=== PATIENT | female | born 1970 | race Caucasian/White ===

== ENCOUNTER 2020-06-06 14:58 | Outpatient (CLI) | payer OTHER, SELFPAY ==
--- NOTE | ~2020-06-06 | XR_ITS ---
XR cervical spine 4-5V 06/06/2020 15:22 Indication: Neck pain Procedure: 4 view cervical spine Comparison: No prior studies for comparison. Findings: Reversal of cervical lordosis. There is mild disc narrowing at C5-6 and C6-7. There are raymundo tral osteophytes at these levels. No acute fractures identified. No prevertebral soft tissue swelling . Odontoid process within normal limits. Mild uncinate hypertrophy at multiple levels. Impression: 1: Mild-moderate cervical spondylosis. Reviewed, dictated and finalized at location B. MS VICE PRESIDENT Impression: 1: Mild-moderate cervical spondylosis.
== END 2020-06-06 14:59 | disposition home or self-care (01) ==
LOC: ANHIMG 15:06
PROVIDERS: PCP Family Medicine; Visit Provider Family Medicine
DX: M47.22 Other spondylosis with radiculopathy, cervical region (principal); M75.81 Other shoulder lesions, right shoulder
CPT/HCPCS: 72050

== ENCOUNTER 2021-03-10 17:04 | Outpatient (CLI) | payer OTHER, SELFPAY ==
--- NOTE | ~2021-03-10 | MM_ITS ---
EXAMINATION: MM screening kenny BI w amilcar HISTORY: Screening mammogram TECHNIQUE: Craniocaudal and mediolateral oblique 3-D tomosynthesis images were obtained and synthetic 2-D images were generated. CAD analysis was submitted and interpreted. COMPARISON: 01/13/2018 limited right breast ultrasound 11/18/2016, 09/19/2015 and 08/09/2014 bilateral digital screening mammogram examinations BREAST PARENCHYMAL COMPOSITION: The breasts are almost entirely fatty. FINDINGS: There is no evidence of suspicious mass, calcification, or architectural distortion to sugg est malignancy in either breast. There has been no suspicious interval change. IMPRESSION: 1. No mammographic evidence of malignancy. 2. Recommend routine screening mammography in one year. BI-RADS Category 1: Negative Reviewed, dictated and finalized at location A.
== END 2021-03-10 17:05 | disposition home or self-care (01) ==
LOC: ANHIMG 17:06
PROVIDERS: PCP Family Medicine; Visit Provider Physician Assistant
DX: Z12.31 Encounter for screening mammogram for malignant neoplasm of breast (principal)
CPT/HCPCS: 77063; 77067

== ENCOUNTER 2021-04-30 19:10 | Emergency (ER) | payer OTHER, SELFPAY ==
[2021-04-30 19:58] VITALS: BP 209/107; PULSE 81; RESP 18; TEMP 36.8; O2SAT 99
--- NOTE | 2021-04-30 20:07 | ECG_ITS ---
Measurements Intervals Post Rate: 76 P: 41 MD: 167 QRS: 10 QRSD: 89 T: 37 QT: 368 QTc: 416 Interpretive Statements SINUS RHYTHM LOW QRS VOLTAGE IN PRECORDIAL LEADS INCOMPLETE RIGHT BUNDLE BRANCH BLOCK DELAYED PRECORDIAL R/S TRANSITION BORDERLINE T WAVE ABNORMALITY- ANTERIOR LEADS BASELINE ARTIFACT- I, II, III, AVR, AVL, AVF BORDERLINE ECG Electronically Signed On 05-01-2021 6:37:53 CDT by Jose Carreon D.O.
[2021-04-30 20:52] LABS: Basophils Absolute Auto 0.1 K/mm3 (0.0-0.1); Basophils Percent Auto 0.9 % (0.2-1.2); Eosinophils Absolute Auto 0.4 K/mm3 (0-0.3); Eosinophils Percent Auto 3.3 % (0-4.4); Hematocrit 42.2 % (37.0-47.0); Hemoglobin 13.3 g/dL (12.0-15.0); Immature Granulocyte Absolute 0.04 K/mm3 (0.00-0.031); Immature Granulocyte Percent A 0.3 % (0-0.5); Lymphocytes Absolute Auto 4.02 K/mm3 (0.9-3.2); Lymphocytes Percent Auto 34.4 % (18.3-44.2); Mean Corpuscular HGB Conc 31.5 g/dl (32-36); Mean Corpuscular Hemoglobin 26.3 pg (26-34); Mean Corpuscular Volume 83.6 fl (80-100); Monocytes Absolute Auto 0.8 K/mm3 (0.1-0.6); Neutrophils Absolute Auto 6.3 K/mm3 (1.3-6.7); Neutrophils Percent Auto 54.1 % (45.5-73.1); Platelet Count Result 352 k/mm3 (150-375); Red Blood Count 5.05 M/mm3 (4.2-5.4); Red Cell Distribution Width 13.3 % (11.5-14.5); White Blood Count 11.7 K/mm3 (4.5-10.0)
[2021-04-30 21:00] LABS: Alanine Aminotransferase 28 U/L (4-35); Albumin Level 4.4 g/dL (3.5-5.1); Alkaline Phosphatase 76 U/L (38-126); Anion Gap 8 mmol/L (8-16); Aspartate Amino Transferase 21 U/L (14-36); Bilirubin,Total 0.2 mg/dL (0.2-1.3); Blood Urea Nitrogen 12 mg/dL (7-17); Calcium 9.6 mg/dL (8.4-10.2); Carbon Dioxide 29 mmol/L (22-30); Chloride 105 mmol/L (98-107); Estimated CRCL calculation 101 ml/min; Estimated Glomerular Filt Rate > 60; Glucose 100 mg/dL (65-110); Potassium 3.7 mmol/L (3.4-5.0); Sodium 142 mmol/L (137-145)
[2021-04-30 21:12] LABS: Troponin I < 0.012 ng/mL (0.000-0.034)
[2021-04-30 21:47] VITALS: BP 152/86; PULSE 82; RESP 16; O2SAT 100
[2021-04-30 22:05] VITALS: BP 160/94; PULSE 80; RESP 15; O2SAT 99
--- NOTE | 2021-04-30 22:12 | ED.GENADULT ---
HPI - General Adult General Chief complaint: Headache Stated complaint: high blood pressure/ lip numbness Time Seen by Provider: 04/30/21 21:35 Source: patient and RN notes reviewed Mode of arrival: ambulatory Limitations: no limitations History of Present Illness HPI narrative: This is a 51 year old female with history of migraines who presents for evaluation of high blood pressure. Patient states this morning she developed her typical migraine. She took 2 Excedrin and her migraine resolved. She went to work and she states she felt fine. She had a nurse at work to check her blood pressure since she was there but she had no symptoms. Her blood pressure was elevated to 170/90 so she was advised to speak to her primary care provider. She called her primary care provider who told her to come to ER. She reports her migraine has resolved. She may some paresthesia to her lip but denies focal weakness. She denies chest pain, shortness of breath or dizziness. She denies history of hypertension and she does not take any medication. She has been under alot of stress this month. Related Data Allergies Allergy/AdvReac Type Severity Reaction Status Date / Time promethazine Allergy Severe hallucinati Verified 04/30/21 21:33 ons Penicillins Allergy Unknown Unknown Verified 04/30/21 21:33 Review of Systems Review of Systems: All systems reviewed & are unremarkable except as noted in HPI and below PMFSH Past Medical History Medical History History of mammogram (~11/18/16) History of Papanicolaou smear of cervix (~08/28/12) Morbid obesity with BMI of 40.0-44.9, adult Surgical History Surgical History History of appendectomy (~11/20/18) History of laparoscopy History of tonsillectomy Social History Social History Smoking status: Never smoker Alcohol intake: current Exam Narrative: GENERAL: Well-appearing, well-nourished, and in no acute distress. HEAD: Normocephalic, atraumatic EYES: PERRLA and EOMI, conjunctiva clear without discharge EARS: TM's clear bilaterally without erythema or dullness NOSE: Nares clear, no rhinorrhea or epistaxis THROAT:Mucous membranes moist, Oropharynx normal without erythema, exudate, peritonsillar swelling or fluctuance NECK: Supple, without lymphadenopathy or mass RESPIRATORY: No respiratory distress, Airway patent, Respirations non-labored, Clear to auscultation without rales, rhonchi or wheeze HEART: Regular rate and rhythm. No murmur heard. Normal peripheral pulses. ABDOMEN: Soft, nontender, nondistended, normal active bowel sounds. No masses. No rebound or guarding, No organomegaly. EXTREMITIES: No edema, normal strength with full range of motion. SKIN: Warm, dry, normal color without rash NEURO: Alert and oriented x3. CN 2-12 grossly intact. No focal deficits. PSYCH: Normal mood and affect. Neuro: General: patient oriented x3, moves all extremities, no meningeal signs, no focal motor deficits and CN's II-XI intact bilaterally Cranial nerves: Yes Nystagmus not present Speech: normal speech Motor exam (neuro): 5/5 motor strength present throughout Sensory Exam: normal sensation Coordination: [id number] test normal and [id number] test normal Course Reevaluation(s) Reevaluation #1: I Discussed with patient plan to discharge on lisinopril with follow up with PCP. She will get new BP monitor and start checking blood pressure at home. She was given return precautions. Date: 04/30/21 Time: 22:41 Consultations Consultation #1: I spoke with Dr. Ceja who recommends patient get blood pressure cuff and to start on lisinopril. BP in 160s in ER Date: 04/30/21 Time: 22:13 Vital Signs Vital signs: Vital Signs Temperature 98.2 F 04/30/21 19:58 Pulse Rate 81 04/30/21 19:58 Respiratory Rate 18
[2021-04-30] MEDS: lisinopriL 10 MG TABLET PO (22:27)
[2021-04-30 22:55] VITALS: BP 170/86; PULSE 79; RESP 16; O2SAT 99
== END 2021-04-30 22:55 | disposition home or self-care (01) ==
PROVIDERS: Emergency Medicine; Emergency Provider General Practice; PCP Family Medicine
DX: R03.0 Elevated blood-pressure reading, without diagnosis of hypertension (principal); E66.01 Morbid (severe) obesity due to excess calories; Z68.41 Body mass index [BMI] 40.0-44.9, adult; I45.10 Unspecified right bundle-branch block; R94.31 Abnormal electrocardiogram [ECG] [EKG]
CPT/HCPCS: 36415; 80053; 84484; 85025; 93005; 99284; A9270

== ENCOUNTER → 2021-05-20 15:30 | Outpatient (CLI) | payer OTHER, SELFPAY ==
--- NOTE | ~2021-05-20 | MR_ITS ---
EXAMINATION: MR brain/brain stem wo con DATE: 05/20/2021 16:22 INDICATION: Bilateral facial numbness. TECHNIQUE: Magnetic resonance imaging (MRI) of the brain and brainstem was performed without intraven ous contrast. Sequences included sagittal and axial T1-weighted FSE, axial diffusion-weighted FS EPI, axial T2*-weighted GRE, axial T2-weighted FLAIR Propeller, and axial T2-weighted Propeller. Apparent diffusion coefficient (ADC) maps were created. COMPARISON: None. FINDINGS: There is an empty sella. There is no intracranial hemorrhage, acute infarction, or abnormal intracranial mass lesion. The ventricles are normal in size. The paranasal sinuses are clear. The ma stoid air cells are normal. The orbits are normal. IMPRESSION: 1. No etiology for the patient's symptoms. Reviewed, dictated and finalized at location A. E PROJECTIONIST
== END ==
PROVIDERS: Visit Provider Family Medicine
DX: R20.0 Anesthesia of skin (principal)
CPT/HCPCS: 70551

== ENCOUNTER 2021-06-16 13:50 | Outpatient (CLI) | payer OTHER, SELFPAY ==
--- NOTE | ~2021-06-16 | US_ITS ---
EXAMINATION: US pelvic complete w TV DATE: 06/16/2021 14:51 INDICATION: Postmenopausal bleeding Comparison:CT dated 11/20/2018 TECHNIQUE: Multiple transabdominal and endovaginal sonographic images of the pelvis performed. FINDINGS: The uterus measures 10.6 x 8.2 x 6.5 cm. The endometrium is thickened and heterogeneous. Th ere are hypoechoic masses in the lower uterus at the cervix measuring 1.6 and 0.7 cm greatest dimensi on respectively. The endometrial complex measures 1.6 cm. The ovaries are not visualized. There is no free fluid in the pelvis. There are no abnormal masses seen on either side. IMPRESSION: 1. Thickened heterogeneous endometrium with complex masses in the lower uterine segment at the cervix measuring up to 1.6 cm. The differential diagnosis includes endometrial hyperplasia, polyp and carcinoma. Biopsy is recommended. Reviewed, dictated and finalized at location A. STAVE ASSEMBLER IMPRESSION: 1. Thickened heterogeneous endometrium with complex masses in the lower uterine segment at the cervix measuring up to 1.6 cm. The differential diagnosis inclu don endometrial hyperplasia, polyp and carcinoma. Biopsy is recommended.
== END 2021-06-16 13:51 | disposition home or self-care (01) ==
LOC: ANHIMG 13:54
PROVIDERS: PCP Family Medicine; Visit Provider Student in an Organized Health Care Education/Training Program
DX: N95.0 Postmenopausal bleeding (principal); R93.89 Abnormal findings on diagnostic imaging of other specified body structures; N88.9 Noninflammatory disorder of cervix uteri, unspecified
CPT/HCPCS: 76830; 76856

== ENCOUNTER 2021-08-10 00:38 | Day surgery (SDC) | payer OTHER, SELFPAY ==
[2021-07-30 12:56] VITALS: BMI 36.8
--- NOTE | 2021-08-10 07:35 | WPDANESEPPF ---
Anes - Initial Pre Proc Eval Procedure: Operation Date: 08/10/21 09:00 Proposed Procedures p Screening Colonoscopy - Heriberto Oro MD Date/Time: 08/10/21 07:35 Surgeon: Heriberto Oro MD Pre Op Diagnosis: neoplasm screening Patient Data Age: 51 Gender: F Height: 1.75 m Weight: 113 kg Allergies Allergy/AdvReac Type Severity Reaction Status Date / Time promethazine Allergy Severe hallucinati Verified 08/10/21 08:08 ons Penicillins Allergy Unknown Rash Verified 08/10/21 08:08 Home Medications Medication Instructions Recorded Confirmed Type cholecalciferol (vitamin D3) 1,250 1,250 mcg PO WEEKLY #14 cap 01/08/21 08/10/21 Rx mcg (50,000 unit) capsule lisinopril 10 mg tablet 10 mg PO DAILY #90 tablet 05/05/21 08/10/21 Rx hydrochlorothiazide 25 mg tablet 25 mg PO QAM #90 tablet 06/02/21 08/10/21 Rx sertraline 50 mg tablet 50 mg PO DAILY #90 tablet 06/02/21 08/10/21 Rx Patient hx anesthesia problems: none Family hx anesthesia problems: none Results Review: All pre-operative results and documents have been reviewed as part of the pre-operative evaluation. [facility] Past Medical History Medical History (Updated 06/10/21 @ 15:08 by Linda Coronel MD) Allergies Anemia Anxiety Asthma Deltoid tendinitis Fatigue Headache History of human papillomavirus infection History of mammogram (~11/18/16) History of Papanicolaou smear of cervix (~08/28/12) Hypertension Morbid obesity with BMI of 40.0-44.9, adult Right rotator cuff tendinitis Screening for breast cancer Surgical History Surgical History (Updated 06/10/21 @ 11:57 by Kristina Buchanan CMA) H/O tubal ligation History of 3 sections History of appendectomy (~11/20/18) History of laparoscopy History of tonsillectomy S/P appendectomy Social History Social History (Updated 06/10/21 @ 11:59 by Kristina Buchanan [facility]) Smoking status: Never smoker Alcohol intake: current Drinks per week: 2 Substance use: never Substance use type: does not use Living arrangements: with family Spiritual care concerns: No Anes - Eval Final PreProcedure Day of Procedure 08/10/21 07:35 Patient weight: obese Heart: regular rate and rhythm Lungs: clear to auscultation and normal air movement Airway: Mallampati scale class II Neurological: alert and oriented Last oral intake: >/= 8 hours ASA classification: III Emergent: no Anesthetic plan: proceed Anesthesia type and monitoring: general GIVS and standard monitoring Results Review: All pre-operative results and documents have been reviewed as part of the pre-operative evaluation. Informed Consent: The patient's anesthetic plan and its attendant risks and benefits were discussed with the patient/family/POA. Questions were solicited and answers provided to the satisfaction of the patient/family/POA.
[2021-08-10 08:09] VITALS: BP 141/95; PULSE 93; RESP 20; TEMP 36.6; O2SAT 20
[2021-08-10] MEDS: LACTATED RINGERS 1,000 ML 150 ML IV CONT (08:11)
--- NOTE | 2021-08-10 08:43 | PM.HPGS ---
History of Present Illness History of Present Illness Consent: Risks, benefits, and alternatives have been discussed and questions answered. Patient agrees to proceed with procedure. Chief complaint: neoplasm screening Narrative: Kandy Michelle is a 51 year old female here for first screening colonoscopy Review of Systems Constitutional: Constitutional: Denies headache(s) and Denies weakness Eyes: Eyes: Denies blurry vision ENT: Reports Normal hearing present, Denies headache(s) and Denies neck pain Cardiovascular: Cardiovascular: Denies chest pain and Denies dyspnea Respiratory: Respiratory: Denies dyspnea Gastrointestinal: Gastrointestinal: Reports no additional gastrointestinal complaints Genitourinary: Genitourinary: Denies dysuria Musculoskeletal: Musculoskeletal: Denies neck pain Integumentary/Breasts: Skin/Breast: Denies dry skin Neurologic: Reports Normal hearing present, Denies headache(s) and Denies weakness Psychiatric: Psychiatric: Denies anxiety Endocrine: Endocrine: Denies change in body appearance Hematologic/Lymphatic: Hematologic/Lymphatic: Denies easy bleeding Allergic/Immunologic: Allergic/Immunologic: Denies urticaria PMFSH Past Medical History Medical History (Updated 08/10/21 @ 08:44 by Heriberto Oro MD) Allergies Anemia Anxiety Asthma Colon cancer screening Deltoid tendinitis Fatigue Headache History of human papillomavirus infection History of mammogram (~11/18/16) History of Papanicolaou smear of cervix (~08/28/12) Hypertension Morbid obesity with BMI of 40.0-44.9, adult Right rotator cuff tendinitis Screening for breast cancer Surgical History Surgical History (Updated 06/10/21 @ 11:57 by Kristina Buchanan CMA) H/O tubal ligation History of 3 sections History of appendectomy (~11/20/18) History of laparoscopy History of tonsillectomy S/P appendectomy Social History Social History (Updated 06/10/21 @ 11:59 by Kristina Buchanan CMA) Smoking status: Never smoker Alcohol intake: current Drinks per week: 2 Substance use: never Substance use type: does not use Living arrangements: with family Spiritual care concerns: No Meds Home Medications and Allergies Home Medications Medication Instructions Recorded Confirmed Type cholecalciferol (vitamin D3) 1,250 1,250 mcg PO WEEKLY #14 cap 01/08/21 08/10/21 Rx mcg (50,000 unit) capsule lisinopril 10 mg tablet 10 mg PO DAILY #90 tablet 05/05/21 08/10/21 Rx hydrochlorothiazide 25 mg tablet 25 mg PO QAM #90 tablet 06/02/21 08/10/21 Rx sertraline 50 mg tablet 50 mg PO DAILY #90 tablet 06/02/21 08/10/21 Rx Allergies Allergy/AdvReac Type Severity Reaction Status Date / Time promethazine Allergy Severe hallucinati Verified 08/10/21 08:08 ons Penicillins Allergy Unknown Rash Verified 08/10/21 08:08 Vital Signs Vital Signs - 24 hr 08/10/21 08:09 Temperature 98 F Pulse Rate 93 Respiratory Rate 20 Blood Pressure 141/95 H Pulse Oximetry 20 L Exam Const: General: comfortable and no acute distress HENMT: General nose exam: Normal nares present Eyes: General: appearance normal, both eyes and all related structures Neck: Neck: no JVD Resp: Auscultation: clear to auscultation bilaterally Cardio: Rate: regular rate Rhythm: regular rhythm GI: Inspection: non-distended GI Palp: Yes Soft to palpation Skin: General skin exam: normal color Neuro: General: gait normal Speech: normal speech Extrem: General: normal to inspection Psych: Mental Status: mental status grossly normal Assessment and Plan Assessment and plan (1) Colon cancer screening: Code(s): Z12.11 - Encounter for screening for malignant neoplasm of colon Status: Acute Assessment and Plan: colonoscopy
--- NOTE | 2021-08-10 09:04 | SUR.OPER ---
Resolution Clip Lot: [id number] Exp: 2024-04-15
[2021-08-10 09:09] VITALS: BP 116/75; PULSE 79; RESP 18; O2SAT 96
[2021-08-10 09:19] VITALS: BP 124/81; PULSE 66; RESP 16; O2SAT 97
[2021-08-10 09:29] VITALS: BP 124/65; PULSE 64; RESP 14; O2SAT 99
== END 2021-08-10 09:39 | disposition home or self-care (01) ==
PROVIDERS: PCP Family Medicine; Visit Provider Internal Medicine Gastroenterology
PROC: 0DJD8ZZ Inspection of Lower Intestinal Tract, Via Natural or Artificial Opening Endoscopic (ICD-10-PCS; CPT 45378; principal; 2021-08-10 09:00)
DX: Z12.11 Encounter for screening for malignant neoplasm of colon (principal); D12.2 Benign neoplasm of ascending colon; D12.4 Benign neoplasm of descending colon; K57.30 Diverticulosis of large intestine without perforation or abscess without bleeding; K64.8 Other hemorrhoids; I10 Essential (primary) hypertension; F41.8 Other specified anxiety disorders; E66.9 Obesity, unspecified; Z68.37 Body mass index [BMI] 37.0-37.9, adult
CPT/HCPCS: 45385; 88305; J2704; J7120

== ENCOUNTER 2021-09-08 08:28 | Outpatient (CLI) | payer OTHER, SELFPAY ==
[2021-09-08 09:00] LABS: Anion Gap 7 mmol/L (8-16); Blood Urea Nitrogen 14 mg/dL (7-17); Calcium 9.4 mg/dL (8.4-10.2); Carbon Dioxide 29 mmol/L (22-30); Chloride 103 mmol/L (98-107); Estimated Glomerular Filt Rate > 60; Glucose 108 mg/dL (65-110); Potassium 4.4 mmol/L (3.4-5.0); Sodium 139 mmol/L (137-145)
== END 2021-09-08 08:29 | disposition home or self-care (01) ==
LOC: ANHSURGERY 08:31
PROVIDERS: Anesthesiology; PCP Family Medicine; Visit Provider Student in an Organized Health Care Education/Training Program
DX: Z01.818 Encounter for other preprocedural examination (principal); I10 Essential (primary) hypertension
CPT/HCPCS: 36415; 80048

== ENCOUNTER 2021-09-11 01:48 | Day surgery (SDC) | payer OTHER, SELFPAY ==
--- NOTE | 2021-09-07 09:04 | SUR.PREOP ---
Report to the Outpatient Waiting Room, entrance under the green pavilion located off [facility], at time 0900 on date 09/11/21. OR Time: 1100. - You and your visitor will be asked a series of questions to screen for COVID 19 for your protection. - A mask is required within the hospital. Preoperative COVID Testing Requirements: No COVID Test needed if: (proof is required; if not received patient will have Rapid Test prior to entry) - Patient has received COVID Vaccine at least 14 days prior to procedure date or - Patient has positive COVID test result within last 90 days of surgery date. COVID Test needed if above criteria is not met If not COVID vaccinated a COVID test must be conducted within 72 hours of surgery and patient is asked to isolate self from time of testing until procedure. You will go to the [facility] for your COVID testing. The [facility] is located at the corner of [address] [facility]. You will only be called if COVID results are positive and your surgeon may reschedule your elective surgery date. Patients may have clear liquids (water, carbonated beverages, clear teas, apple juice) until 3 hours prior to surgery with a maximum of 20 ounces. NOTHING TO DRINK AFTER 0800. - No food from midnight until time of surgery - Infants may have breast milk until 4 hours before surgery, formula 6 hours prior to surgery. - Children will be allowed to drink immediately following surgery. If applicable, please bring a bottle or sippy cup to assist with drinking. Juice, water, soda, and popsicles are readily available. For infants on formula, please bring formula the day of surgery. Pacifiers are allowed. Take the following medications with a SIP of water the morning of surgery: SERTRALINE Please no make-up, nail macedonian, hairspray, perfume, deodorant, or body powder the day of surgery. No jewelry (including any body piercings) or valuables the day of surgery, leave them at home. Please take a shower or bath the night before, or the morning of, surgery with an antibacterial soap. Wear comfortable, loose fitting clothing. Children are encouraged to wear pajamas. - Jewelry must be removed prior to entering the operating room. Rings and piercings that are not removed may be cut off. - The hospital will not accept responsibility for valuables. - Please leave all valuables, including medications, at home the day of surgery. If you are going home after surgery, a licensed charter and tour bus driver must drive you home. - NO public transportation without another adult. - We recommend that an adult stay with you for 24 hours following discharge. - We also recommend that you do not drive, make important decision, drink alcoholic beverages, or take any drugs that were not prescribed by your health care provider for at least 24 hours after your discharge time. For Pediatric surgeries, we recommend two adults accompany the child home (only one inside the building at this time). One visitor will be allowed to accompany the patient into the hospital. Patients visitor will be instructed to remain with patient at all times or leave the building. We will allow the visitor to come back to the postoperative area when patient is ready. Follow any additional instructions given to you from your surgeon. Telephone instructions given to RADHA JEFF and asked if any additional questions and then verbalized understanding. Patient advised to call surgeon office or pre surgery nurse liaison [phone] if any additional questions.
[2021-09-07 09:12] VITALS: BMI 36.9
--- NOTE | 2021-09-10 17:36 | PM.IMHP ---
H&P: HPI History of Present Illness Date/Time: 09/10/21 17:36 Patient is a 51yo woman who presented to gynecology office in 06/2021 with complaints of postmenopausal bleeding. Patient stated that last normal menstrual period was in either 2018 or 2019. Since then, patient reported a few episodes of spotting, however, states that the spotting did not last more than one day with each of these occurrences. Beginning in approx. 2020, patient reports onset of almost daily bleeding that has tapered off to rare, but still present. She also reports occasional cramping. In office EMB was attempted twice, however, unsuccessful due to cervical stenosis. With second attempt, scant tissue was collected, however, this was inconsistent given the thickness of endometrial lining on US. Therefore, recommendation made to proceed with hysteroscopy/D&C for further evaluation. In general, patient reports feeling well today without complaints. Chief Complaint: Postmenopausal bleeding Review of Systems Review of Systems: All systems reviewed & are unremarkable except as noted in HPI and below Constitutional: Constitutional: Reports as per HPI, Reports no additional constitutional complaints, Denies chills, Denies fever(s), Denies headache(s) and Denies night sweats Eyes: Eyes: Reports as per HPI and Reports no additional eye complaints ENT: Reports system reviewed and no additional complaints, except as documented, Reports as per HPI, Reports Normal hearing present and Denies headache(s) Cardiovascular: Cardiovascular: Reports as per HPI, Reports no additional cardiovascular complaints, Denies chest pain and Denies dyspnea Respiratory: Respiratory: Reports as per HPI, Reports no additional respiratory complaints, Denies cough and Denies dyspnea Gastrointestinal: Gastrointestinal: Reports as per HPI, Reports no additional gastrointestinal complaints, Denies abdominal pain, Denies change in bowel habits, Denies change in stool character, Denies nausea and Denies vomiting Genitourinary: Genitourinary: Reports no additional female genitourinary complaints, Reports as per HPI, Denies abnormal vaginal bleeding, Denies genital lesions, Denies hot flashes, Denies dyspareunia, Denies pelvic pain, Denies sexual dysfunction, Denies urinary incontinence, Denies vaginal discharge, Denies vaginal dryness and Denies vaginal odor Musculoskeletal: Musculoskeletal: Reports no additional musculoskeletal complaints and Reports as per HPI Integumentary/Breasts: Skin/Breast: Reports system reviewed and no additional complaints, except as docu, Reports as per HPI, Denies breast pain and Denies nipple discharge Neurologic: Reports system reviewed and no additional complaints, except as documented, Reports as per HPI, Reports Normal hearing present and Denies headache(s) Psychiatric: Psychiatric: Reports no additional psychiatric complaints, Reports as per HPI, Denies anxiety and Denies depression Endocrine: Endocrine: Reports no additional endocrine complaints and Reports as per HPI Hematologic/Lymphatic: Hematologic/Lymphatic: Reports no additional hematologic/lymphatic complaints and Reports as per HPI Allergic/Immunologic: Allergic/Immunologic: Reports no additional allergic/immunologic complaints and Reports as per HPI PMFSH Past Medical History Medical History Allergies Anemia Anxiety Asthma Colon cancer screening Deltoid tendinitis Fatigue Headache History of human papillomavirus infection History of mammogram (~11/18/16) History of Papanicolaou smear of cervix (~08/28/12) Hypertension Morbid obesity with BMI of 40.0-44.9, adult Right rotator cuff tendinitis Screening for breast cancer Surgical History Surgical History H/O tubal ligation History of 3 sections History of appendectomy (~11/20/18) History of colonoscopy with polypectomy History of laparoscopy Hi
--- NOTE | 2021-09-11 09:24 | P.PNAN_ITS ---
Anes - Initial Pre Proc Eval Procedure: Operation Date: 09/11/21 11:00 Proposed Procedures p Hysteroscopy Dilation and Curettage with Myosure - Linda Coronel MD Date/Time: 09/11/21 09:24 Surgeon: Linda Coronel MD Pre Op Diagnosis: Post Menopausal Bleeding Patient Data Age: 51 Gender: F Height: 1.75 m Weight: 113.4 kg Allergies Allergy/AdvReac Type Severity Reaction Status Date / Time promethazine Allergy Severe hallucinati Verified 09/07/21 09:17 ons Penicillins Allergy Unknown Rash Verified 09/07/21 09:17 Home Medications Medication Instructions Recorded Confirmed Type cholecalciferol (vitamin D3) 1,250 1,250 mcg PO WEEKLY #14 cap 01/08/21 09/07/21 Rx mcg (50,000 unit) capsule lisinopril 10 mg tablet 10 mg PO DAILY #90 tablet 05/05/21 09/07/21 Rx hydrochlorothiazide 25 mg tablet 25 mg PO QAM #90 tablet 06/02/21 09/07/21 Rx sertraline 50 mg tablet 50 mg PO DAILY #90 tablet 06/02/21 09/07/21 Rx misoprostol 200 mcg tablet 200 mcg PO Q12H #2 tablet 09/04/21 09/07/21 Rx Patient hx anesthesia problems: none Family hx anesthesia problems: none Results Review: All pre-operative results and documents have been reviewed as part of the pre-operative evaluation. [facility] Past Medical History Medical History Allergies Anemia Anxiety Asthma Colon cancer screening Deltoid tendinitis Fatigue Headache History of human papillomavirus infection History of mammogram (~11/18/16) History of Papanicolaou smear of cervix (~08/28/12) Hypertension Morbid obesity with BMI of 40.0-44.9, adult Right rotator cuff tendinitis Screening for breast cancer Surgical History Surgical History H/O tubal ligation History of 3 sections History of appendectomy (~11/20/18) History of colonoscopy with polypectomy History of laparoscopy History of tonsillectomy S/P appendectomy Social History Social History Smoking status: Never smoker Substance use: never Substance use type: does not use Living arrangements: with family Spiritual care concerns: No Anes - Eval Final PreProcedure Day of Procedure 09/11/21 09:24 Patient weight: obese Heart: regular rate and rhythm Lungs: clear to auscultation Airway: Mallampati scale class II Neurological: alert and oriented Last oral intake: >/= 8 hours ASA classification: III Emergent: no Anesthetic plan: proceed Anesthesia type and monitoring: general GIVS and standard monitoring Results Review: All pre-operative results and documents have been reviewed as part of the pre-operative evaluation. Informed Consent: The patient's anesthetic plan and its attendant risks and benefits were discussed with the patient/family/POA. Questions were solicited and answers provided to the satisfaction of the patient/family/POA.
[2021-09-11] MEDS: LACTATED RINGERS 1,000 ML 30 ML IV CONT (09:30)
[2021-09-11] MEDS: ACETAMINOPHEN 500 MG TABLET 1000 MG PO (09:36)
--- NOTE | 2021-09-11 09:41 | WPDHPUPDATE1 ---
History and Physical Update Update Date/Time: 09/11/21 09:41 History and Physical has been reviewed, including an updated exam of the patient. There are NO changes in the patient's condition. Risks, benefits, and alternatives have been discussed and questions answered. Patient agrees to proceed with procedure.
[2021-09-11 09:45] VITALS: BP 137/84; PULSE 71; RESP 18; TEMP 36.7; O2SAT 98
[2021-09-11 10:22] VITALS: BP 149/91; PULSE 63; RESP 14; O2SAT 92
[2021-09-11 10:52] VITALS: BP 148/97; PULSE 71; RESP 14; O2SAT 94
[2021-09-11] MEDS: oxyCODONE HCL (*CRX) 5 MG TAB IR PO (11:06)
--- NOTE | 2021-09-11 11:19 | P.OP_ITS ---
Procedure Note - Detailed Date of Procedure 09/11/21 Pre-op Diagnosis Post Menopausal Bleeding Post-op Diagnosis Same Procedure Performed Hysteroscopy Dilation and curettage Surgeon Linda Coronel MD Anesthesia MAC Findings Endometrial cavity severely obscured by adhesions and scar tissue, limited visualization Description of Procedure The patient was taken to the operating room where she self-transferred to the operating room table. Patient was placed in the dorsal supine position. Anesthesia was administered and found to be adequate. The patient was repositioned in the dorsal lithotomy position with the use of Yariel stirrups. She was prepped and draped in the usual sterile fashion. A red rubber catheter was used to drain the bladder of 5 cc of yellow urine. A bivalve speculum was inserted into the vagina. The cervix was visualized and the anterior lip of the cervix was grasped with a single-tooth tenaculum. A paracervical block with 1% plain lidocaine was performed. 5 cc of lidocaine was administered on either side. The cervix was serially dilated to accommodate a hysteroscope. The hysteroscope was then advanced into the endometrial cavity, however, what appeared to be significant scar tissue and adhesions was noted. This limited a dequate visualization of the endometrial cavity. Tubal ostia were not visualized. Photographs were taken. As hysteroscope was slowly retracted, there appeared to be tract on the left side of the endometrial cavity near lower uterine segment. Attempt made to advance hysteroscope through this tract, however, unable to do so. Hysteroscope was removed. A medium sized rigid curette was then introduced into the endometrial cavity. Given the inability to visualize the endometrial cavity clearly, extremely gentle curettage was performed with a scant amount of tissue obtained. The specimen was prepared to be sent to pathology for analysis. Procedure was deemed complete. The tenaculum was removed. Minimal oozing was noted from one of the tenaculum puncture sites. This site was made hemostatic with silver nitrate. The vagina was cleansed and dried. The speculum was removed. The remainder of the patient was also cleansed and dried. She was taken out of the dorsal lithotomy position and awakened from anesthesia without difficulty. She was transferred to the recovery room in stable condition. All sponge, lap, instrument counts were correct at end of the procedure. Estimated Blood Loss 5 IV Fluids 600 (hysteroscopic fluid: 2850cc in/1650cc out) Urine Output 5 Drains No Packing No Pathology Yes (endometrial curettings) Complications No immediate complications Condition Stable Disposition Same day
[2021-09-11 11:22] VITALS: BP 141/70; PULSE 61; RESP 14; O2SAT 97
[2021-09-11 11:45] VITALS: BP 132/83; PULSE 63; RESP 14; O2SAT 94
== END 2021-09-11 11:55 | disposition home or self-care (01) ==
PROVIDERS: PCP Family Medicine; Visit Provider Student in an Organized Health Care Education/Training Program
PROC: 0U5B8ZZ Destruction of Endometrium, Via Natural or Artificial Opening Endoscopic (ICD-10-PCS; CPT 58563; principal; 2021-09-11 11:00)
DX: N95.0 Postmenopausal bleeding (principal); N73.6 Female pelvic peritoneal adhesions (postinfective); I10 Essential (primary) hypertension; F41.9 Anxiety disorder, unspecified; E66.9 Obesity, unspecified; Z68.37 Body mass index [BMI] 37.0-37.9, adult
CPT/HCPCS: 58558; 36415; 80048; 88305; A9270; J2250; J2704; J3010; J7030; J7120

== ENCOUNTER 2021-12-29 12:23 | Outpatient (CLI) | payer OTHER, SELFPAY ==
--- NOTE | 2021-12-29 12:36 | ECG_ITS ---
Measurements Intervals [place] Rate: 61 P: 40 NE: 157 QRS: -3 QRSD: 94 T: 39 QT: 438 QTc: 443 Interpretive Statements SINUS RHYTHM WITH OCCASIONAL VENTRICULAR PREMATURE COMPLEXES RIGHT VENTRICULAR CONDUCTION DELAY Electronically Signed On 12-29-2021 12:58:50 CDT by Markell Morel M.D.
[2021-12-29 13:09] LABS: Anion Gap 7 mmol/L (8-16); Blood Urea Nitrogen 15 mg/dL (7-17); Calcium 9.2 mg/dL (8.4-10.2); Carbon Dioxide 27 mmol/L (22-30); Chloride 105 mmol/L (98-107); Estimated Glomerular Filt Rate > 60; Glucose 98 mg/dL (65-110); Potassium 3.8 mmol/L (3.4-5.0); Sodium 139 mmol/L (137-145)
== END 2021-12-29 12:24 | disposition home or self-care (01) ==
LOC: ANHSURGERY 12:25
PROVIDERS: Anesthesiology; PCP Family Medicine; Visit Provider Obstetrics & Gynecology
DX: Z01.818 Encounter for other preprocedural examination (principal); I10 Essential (primary) hypertension; N95.0 Postmenopausal bleeding; R94.31 Abnormal electrocardiogram [ECG] [EKG]
CPT/HCPCS: 36415; 80048; 86850; 86900; 86901; 93005

== ENCOUNTER 2022-01-01 15:10 | Inpatient (IN) | payer OTHER, SELFPAY ==
[2021-12-28 10:42] VITALS: BMI 36.2
--- NOTE | 2021-12-28 10:47 | PC.NURSE ---
Report to the Outpatient Waiting Room, entrance under the green pavilion located off [facility], at time _1000_ on date _[id number]_. OR Time: _1200__. - You and your visitor will be asked a series of questions to screen for COVID 19 for your protection. - Only one visitor is allowed at this time. - The patient visitor is requested to leave or wait in car when not with patient. - A mask is required within the hospital. Patients may have clear liquids (water, carbonated beverages, clear teas, apple juice) until 3 hours prior to surgery with a maximum of 20 ounces. - No food from midnight until time of surgery Take the following medications with a SIP of water the morning of surgery: __Sertraline Medications to discontinue per physician Magnesium Date to take last avfj__09-25-1800 Please no make-up, nail cypriot, hairspray, perfume, deodorant, or body powder the day of surgery. No jewelry (including any body piercings) or valuables the day of surgery, leave them at home. Please take a shower or bath the night before, or the morning of, surgery with an antibacterial soap. Wear comfortable, loose fitting clothing. - Jewelry must be removed prior to entering the operating room. Rings and piercings that are not removed may be cut off. - The hospital will not accept responsibility for valuables. - Please leave all valuables, including medications, at home the day of surgery. If you are going home after surgery, a licensed dedicated intermodal truck driver must drive you home. - NO public transportation without another adult. - We recommend that an adult stay with you for 24 hours following discharge. - We also recommend that you do not drive, make important decision, drink alcoholic beverages, or take any drugs that were not prescribed by your health care provider for at least 24 hours after your discharge time. Follow any additional instructions given to you from your surgeon. If you or anyone in your household have experienced Covid symptoms in the past week, please notify your surgeon or the nurse liaison at the phone number below for possible testing. Telephone instructions given to __Patient and asked if any additional questions and then verbalized understanding. Patient advised to call surgeon office or pre surgery nurse liaison [phone] if any additional questions.
[2022-01-01] VITALS (10 sets, daily range): BP systolic 120–137; BP diastolic 71–88; PULSE 49–85; RESP 12–18; TEMP 36.2–36.6; O2SAT 93–100
[2022-01-01] MEDS: LACTATED RINGERS 1,000 ML 30 ML IV CONT ×2 (10:49→14:06)
[2022-01-01] MEDS: ACETAMINOPHEN 500 MG TABLET 1000 MG PO (10:50)
[2022-01-01] MEDS: KETOROLAC 15 MG/ML VIAL (*BKC) IV PUSH (10:50)
--- NOTE | 2022-01-01 10:55 | WPDANESEPPF ---
Anes - Initial Pre Proc Eval Procedure: Operation Date: 01/01/22 12:00 Proposed Procedures p Robotic Assisted Total Vaginal Hysterectomy with Bilateral Salpingo-Oophorectomy - Dominik Berman MD Date/Time: 01/01/22 10:55 Surgeon: Dominik Berman MD Pre Op Diagnosis: postmenopausal bleeding,endometrial mass Patient Data Age: 51 Gender: F Height: 1.75 m Weight: 113.1 kg Last Vital Signs Temp 36.2 C L 01/01/22 10:24 Pulse 71 01/01/22 10:24 Resp 18 01/01/22 10:24 BP 134/88 01/01/22 10:24 Pulse Ox 98 01/01/22 10:24 O2 Del Method Room Air 01/01/22 10:24 Allergies Allergy/AdvReac Type Severity Reaction Status Date / Time promethazine Allergy Severe hallucinati Verified 01/01/22 10:56 ons Penicillins Allergy Unknown Rash Verified 01/01/22 10:56 Home Medications Medication Instructions Recorded Confirmed Type cholecalciferol (vitamin D3) 1,250 1,250 mcg PO WEEKLY #14 caps 01/08/21 12/28/21 Rx mcg (50,000 unit) capsule sertraline 50 mg tablet 50 mg PO DAILY #90 tabs 06/02/21 12/28/21 Rx lisinopril 10 1 tablet PO DAILY 09/29/21 12/28/21 History mg-hydrochlorothiazide 12.5 mg tablet amitriptyline 25 mg tablet 25 mg PO HS 12/28/21 12/28/21 History magnesium 250 mg tablet 250 mg PO DAILY 12/28/21 12/28/21 History Patient hx anesthesia problems: none Family hx anesthesia problems: none Results Review: All pre-operative results and documents have been reviewed as part of the pre-operative evaluation. [facility] Past Medical History Medical History Allergies Anemia Anxiety Asthma Colon cancer screening Deltoid tendinitis Fatigue Headache History of human papillomavirus infection History of mammogram (~11/18/16) History of Papanicolaou smear of cervix (~08/28/12) Hypertension Right rotator cuff tendinitis Screening for breast cancer Surgical History Surgical History H/O dilation and curettage H/O tubal ligation History of 3 sections History of appendectomy (~11/20/18) History of colonoscopy with polypectomy History of hysteroscopy History of laparoscopy History of tonsillectomy S/P appendectomy Social History Social History Smoking status: Never smoker Drinks per week: 2 Substance use: never Substance use type: does not use Living arrangements: with family Spiritual care concerns: No Anes - Eval Final PreProcedure Day of Procedure 01/01/22 10:55 Patient weight: obese Heart: regular rate and rhythm Lungs: clear to auscultation Airway: Mallampati scale class II Neurological: alert and oriented Last oral intake: >/= 8 hours ASA classification: III Emergent: no Anesthetic plan: proceed Anesthesia type and monitoring: general ETT and standard monitoring Results Review: All pre-operative results and documents have been reviewed as part of the pre-operative evaluation. Informed Consent: The patient's anesthetic plan and its attendant risks and benefits were discussed with the patient/family/POA. Questions were solicited and answers provided to the satisfaction of the patient/family/POA.
--- NOTE | 2022-01-01 11:49 | PM.IMHP ---
H&P: HPI History of Present Illness Date/Time: 01/01/22 11:49 Chief Complaint: Bleeding Narrative: 51 y/o who developed vaginal bleeding, after having had none in 3 years. A workup showed an endometrial complex 1.6 cm thick. However, owing to cervical stenosis, sampling of the endometrium has not been possible. She even went to the OR for hysteroscopy / D&C, but access to the endometrial cavity was not possible. She is here for definitive management with hysterectomy. Review of Systems Review of Systems: All systems reviewed & are unremarkable except as noted in HPI and below PMFSH Past Medical History Medical History Allergies Anemia Anxiety Asthma Colon cancer screening Deltoid tendinitis Fatigue Headache History of human papillomavirus infection History of mammogram (~11/18/16) History of Papanicolaou smear of cervix (~08/28/12) Hypertension Right rotator cuff tendinitis Screening for breast cancer Surgical History Surgical History H/O dilation and curettage H/O tubal ligation History of 3 sections History of appendectomy (~11/20/18) History of colonoscopy with polypectomy History of hysteroscopy History of laparoscopy History of tonsillectomy S/P appendectomy Social History Social History Smoking status: Never smoker Drinks per week: 2 Substance use: never Substance use type: does not use Living arrangements: with family Spiritual care concerns: No Meds Home Medications and Allergies Home Medications Medication Instructions Recorded Confirmed Type cholecalciferol (vitamin D3) 1,250 1,250 mcg PO WEEKLY #14 caps 01/08/21 01/01/22 Rx mcg (50,000 unit) capsule sertraline 50 mg tablet 50 mg PO DAILY #90 tabs 06/02/21 01/01/22 Rx lisinopril 10 1 tablet PO DAILY 09/29/21 01/01/22 History mg-hydrochlorothiazide 12.5 mg tablet amitriptyline 25 mg tablet 25 mg PO HS 12/28/21 01/01/22 History magnesium 250 mg tablet 250 mg PO DAILY 12/28/21 01/01/22 History Allergies Allergy/AdvReac Type Severity Reaction Status Date / Time promethazine Allergy Severe hallucinati Verified 01/01/22 10:56 ons Penicillins Allergy Unknown Rash Verified 01/01/22 10:56 Vital Signs Vital Signs - 24 hr 01/01/22 10:24 Temperature 36.2 C L Pulse Rate 71 Respiratory Rate 18 Blood Pressure 134/88 Pulse Oximetry 98 Oxygen Delivery Room Air Exam Const: Orientation/consciousness: patient oriented x3 Other: Well-developed, well-nourished female in no acute distress. Neck: Thyroid: thyroid normal Lymphatic: no lymphadenopathy noted (in neck, axilla or inguinal nodes) Resp: Effort & Inspection: normal respiratory effort Auscultation: clear to auscultation bilaterally Cardio: Rate: regular rate Rhythm: regular rhythm Heart sounds: S1 normal heart sound present and S2 normal heart sound present GI: Other: ABD: Soft, nontender, nondistended. No guarding or rebound tenderness. No hepatosplenomegaly. : General: Yes no CVA tenderness Other: External genitalia: normal female hair distribution, without lesion. Urethral meatus: no lesion, non prolapsed. Bladder: no mass, nontender Vagina: well-estrogenized, without lesion or discharge. No cystocele or rectocele. Cervix: no lesion or discharge. Uterus: small, anteverted, freely mobile, nontender Adnexa: no mass or tenderness. Anus/perineum: no lesions, nontender Back/Spine/Pelvis: Back: no CVA tenderness Skin: General skin exam: normal color and no rashes or lesions noted Neuro: General: patient oriented x3 Extrem: Other: Extremities: nontender with no edema Psych: Mental Status: mental status grossly normal Affect: normal affect Assessment and Plan Assessment and plan (1) Abnormal pelvic ultrasound: Code(s): R93.89 -
--- NOTE | 2022-01-01 11:55 | WPDHPUPDATE1 ---
History and Physical Update Update Date/Time: 01/01/22 11:55 History and Physical has been reviewed, including an updated exam of the patient. There are NO changes in the patient's condition. Risks, benefits, and alternatives have been discussed and questions answered. Patient agrees to proceed with procedure.
[2022-01-01] MEDS: ceFAZolin 2 GM/D5W 50 ML 2 GM/50 ML BAG IVPB (12:11)
--- NOTE | 2022-01-01 13:53 | W.PM.PROC2 ---
Procedure Note - Detailed Date of Procedure 01/01/22 Pre-op Diagnosis Postmenopausal vaginal bleeding Endometrial mass Cervical stenosis Post-op Diagnosis Same Procedure Performed Robotic assisted total vaginal hysterectomy with bilateral salpingo-oophorectomy Surgeon Dominik Berman MD Anesthesia General Findings Fibroid uterus. Normal-appearing ovaries. Description of Procedure The patient was taken to the operating room where general endotracheal anesthesia was administered. She was prepared and draped in the usual sterile fashion in the dorsal lithotomy position. The bladder was drained with Lerma catheter. The cervix was visualized and the anterior lip was grasped using a single-tooth tenaculum. The cervix was gently dilated using Hegar dilators. The JESSEE 2 uterine manipulator was then placed and the tenaculum was removed. Gloves were changed and attention was turned to the abdomen. A supraumbilical skin incision was made with the scalpel. The Veress needle was advanced and pneumoperitoneum was administered using carbon dioxide gas. The bladeless trocar was then advanced. Intraperitoneal placement was confirmed using the laparoscope. Lateral ports and an bilingual sales assistant port were all placed using bladeless trocars under direct laparoscopic visualization. She was placed in Trendelenburg position and the patient cart was docked. I assumed the console. The ureters were visualized bilaterally. The round ligament on the right was divided. The infundibulopelvic ligament was divided. The broad ligament was divided, skeletonizing the uterine artery on the right. The bladder was reflected away. The left side was similarly dissected. Colpotomy was performed circumferentially. The specimen was removed and passed off to be sent to pathology. The vaginal cuff was reapproximated using 0 Vicryl in interrupted [id number] fashion. The pelvis was irrigated copiously using warmed normal saline. Rigorous hemostasis was assured. HemaDerm was applied to the vaginal cuff. The pedicles were inspected once again. The ports were then withdrawn and the gas was allowed to escape. The skin incisions were reapproximated using 4 0 Monocryl in interrupted subcuticular fashion. Dermaflex was applied externally. Sponge, lap, needle and instrument counts were correct. The patient was awakened and taken to the recovery room in stable condition. I was present and scrubbed through the entire procedure. Implants None Estimated Blood Loss 200 Drains Yes (Lerma) Packing No Pathology Yes (Uterus, cervix, bilateral ovaries and Fallopian tubes.) Complications None Condition Stable Disposition PACU
--- NOTE | 2022-01-01 13:56 | PM.DS ---
DS: Admitting Diagnosis Discharge Date 01/02/22 Admitting Diagnosis Postmenopausal vaginal bleeding Endometrial mass Cervical stenosis DS: Discharge Diagnosis Discharge Diagnosis (1) Cervical stenosis (uterine cervix): Code(s): N88.2 - Stricture and stenosis of cervix uteri Status: Acute (2) Abnormal pelvic ultrasound: Code(s): R93.89 - Abnormal findings on diagnostic imaging of other specified body structures Status: Acute (3) Postoperative visit: Code(s): Z48.89 - Encounter for other specified surgical aftercare Status: Acute DS: Summary Hospital Course Hospital Course: She presented to the hospital on the date of scheduled surgery. She underwent robotic assisted TVHBSO. Postoperatively she did well. The malone was removed and she voided without difficulty. Pain was well-controlled. She tolerated a regular diet. She was ready to go home on POD#1. DS: Data Data Completed and Pending Pending studies at discharge: Pending at discharge 01/01/22 12:57 Surgical [PTH] Routine Discharge Plan Discharge Attending physician on discharge: Dominik Berman Discharging Clinician: Dominik Berman Patient Disposition: Home, Self-Care Activity: may shower, may drive after 2 weeks and pelvic rest Diet: regular Wound Care Instructions: incision open to air Discharge Instructions: Nothing in the vagina for six weeks. Call or return if temperature above 100.4? F, increased abdominal pain, increased vaginal bleeding or any new problems. Stand Alone Forms: General Discharge Instructions Follow-up/Referrals: Dominik Berman MD [Physician] - 2 Weeks Discharge Medications: New hydrocodone-acetaminophen 5-325 mg tablet 1 - 2 tablet PO Q6H Qty: 30 0RF ibuprofen 800 mg tablet 800 mg PO TID PRN (Reason: pain) Qty: 30 0RF Continued lisinopril-hydrochlorothiazide 10-12.5 mg tablet 1 tablet PO DAILY sertraline 50 mg tablet 50 mg PO DAILY Qty: 90 3RF amitriptyline 25 mg tablet 25 mg PO HS magnesium 250 mg Tablet 250 mg PO DAILY cholecalciferol (vitamin D3) 1,250 mcg (50,000 unit) capsule 1,250 mcg PO WEEKLY Qty: 14 0RF Rx Instructions: Fridays Date of admission: 01/01/22 15:29 Primary Care Provider: Daphney Herrmann Admitting Provider: Dominik Berman Attending physician on admission: Dominik Berman Condition: Stable
[2022-01-01] MEDS: fentaNYL CITRATE INJ (*CRX) 100 MCG/2 ML VIAL 25 MCG IV PUSH ×4 (14:26→14:55)
--- NOTE | 2022-01-01 15:15 | PC.NURSE ---
This patient, Kandy Michelle, was received from PACU on 01/01/22 at 1515. Patient/family oriented to unit policies and routines
[2022-01-01] MEDS: ONDANSETRON INJ 4 MG/2 ML VIAL IV PUSH (15:57)
[2022-01-01] MEDS: DEXTROSE 5%/0.45% SOD CHL 1,000 ML 125 ML IV CONT (15:57)
[2022-01-01] MEDS: MORPHINE SULFATE (*CRX) 4 MG/ML INJ IV PUSH (15:58)
[2022-01-01] MEDS: ESTRADIOL 7 DAY 0.05 MG PATCH TRANSDERM (15:59)
[2022-01-01] MEDS: ENOXAPARIN 40 MG/0.4 ML SYRINGE SUB-Q (21:20)
[2022-01-01] MEDS: AMITRIPTYLINE HCL 25 MG TABLET PO (21:20)
[2022-01-01] MEDS: HYDROcodone/acetaminophen (*CRX) 10-325 MG TABLET 1 TAB PO (21:21)
[2022-01-02] MEDS: HYDROcodone/acetaminophen (*CRX) 5-325 MG TABLET 1 TAB PO ×2 (04:19→09:16)
[2022-01-02 04:20] VITALS: BP 109/64; PULSE 77; RESP 14; TEMP 36.3; O2SAT 97
[2022-01-02 05:04] LABS: Basophils Percent Auto 0.2 % (0.2-1.2); Hematocrit 36.4 % (37.0-47.0); Hemoglobin 11.7 g/dL (12.0-15.0); Immature Granulocyte Absolute 0.04 K/mm3 (0.00-0.031); Immature Granulocyte Percent A 0.4 % (0-0.5); Lymphocytes Absolute Auto 1.28 K/mm3 (0.9-3.2); Lymphocytes Percent Auto 11.7 % (18.3-44.2); Mean Corpuscular HGB Conc 32.1 g/dl (32-36); Mean Corpuscular Hemoglobin 26.6 pg (26-34); Mean Corpuscular Volume 82.7 fl (80-100); Mean Platelet Volume 9.9 fl (7.4-10.4); Monocytes Absolute Auto 0.4 K/mm3 (0.1-0.6); Monocytes Percent Auto 3.6 % (2.6-8.5); Neutrophils Absolute Auto 9.2 K/mm3 (1.3-6.7); Neutrophils Percent Auto 84.1 % (45.5-73.1); Platelet Count Result 307 k/mm3 (150-375); Red Cell Distribution Width 13.2 % (11.5-14.5)
--- NOTE | 2022-01-02 08:14 | WPDANESPN ---
Anes - Prog Note Post-Op Date/Time: 01/02/22 08:14 Vital Signs: Last Vital Signs Temp 36.3 C L 01/02/22 04:20 Pulse 77 01/02/22 04:20 Resp 14 01/02/22 04:20 BP 109/64 01/02/22 04:20 Pulse Ox 97 01/02/22 04:20 O2 Del Method Room Air 01/01/22 23:45 O2 Flow Rate 2.0 01/01/22 16:40 Pain Score (VAS): 09/10 I/O: Intake & Output 01/01/22 01/02/22 01/02/22 23:59 07:59 15:59 Intake Total 650 500 Output Total 650 1200 Balance 0 -700 Laboratory Tests 01/02/22 04:23 01/02/22 04:23 WBC 11.0 H RBC 4.40 Hgb 11.7 L Hct 36.4 L MCV 82.7 MCH 26.6 MCHC 32.1 RDW 13.2 Plt Count 307 MPV 9.9 Immature Gran % (Auto) 0.4 Neut % (Auto) 84.1 H Lymph % (Auto) 11.7 L [place] % (Auto) 3.6 Eos % (Auto) 0.0 Baso % (Auto) 0.2 Lymph # (Auto) 1.28 [place] # (Auto) 0.4 Eos # (Auto) 0.0 Baso # (Auto) 0.0 Abs Immat Gran (auto) 0.04 H Absolute Neuts (auto) 9.2 H Absolute Nucleated RBC 0.0 Nucleated RBC % 0.0 Patient Feedback: Patient satisfied with anesthetic care.
[2022-01-02] MEDS: MAGNESIUM 13.5 MG TABLET (250 MG MAG GLUCONATE) PO (09:17)
[2022-01-02] MEDS: hydroCHLOROthiazide 12.5 MG CAPSULE PO (09:17)
[2022-01-02] MEDS: ERGOCALCIFEROL 50,000 UNIT CAPSULE 50000 UNITS PO (09:17)
[2022-01-02] MEDS: DOCUSATE SODIUM 100 MG CAPSULE PO (09:17)
[2022-01-02] MEDS: lisinopriL 10 MG TABLET PO (09:17)
[2022-01-02] MEDS: SERTRALINE HCL 50 MG TABLET PO (09:18)
[2022-01-02 09:27] VITALS: BP 102/59; PULSE 72; PULSE 77; RESP 14; RESP 16; TEMP 36.1; O2SAT 94; O2SAT 97
--- NOTE | 2022-01-02 11:32 | PM.GYNPNOP ---
PLASTICS SUPERVISOR - A/P Postoperative Procedures: Procedures Operation Date: 01/01/22 12:00 Actual Procedure Side Surgeon p Robotic Assisted Total Vaginal Hysterectomy with Bilateral Salpingo-Oophorectomy Bilateral Dominik Berman MD Time Spent With Patient Time with patient: less than 15 minutes PLASTICS SUPERVISOR- PN:Subj Post-Op Subjective Date/time seen: 01/02/22 11:32 Interval history: Pain OK. Tolerating diet. Voiding. Would like to go home. Exam Narrative: AVSS I/O OK ABD soft, nontender. Incisions c/d/i. EXT nontender PLASTICS SUPERVISOR - PN: Obj Data Vital Signs Vital Signs: Vital Signs - 24 hr 01/01/22 14:06 01/01/22 14:20 01/01/22 14:35 Temperature 36.5 C Pulse Rate 49 L 54 L 50 L Respiratory Rate 12 14 12 Blood Pressure 137/77 136/80 135/78 Pulse Oximetry 100 100 99 Oxygen Delivery Simple Face Mask Simple Face Mask Simple Face Mask Oxygen Flow Rate 8 8 8 01/01/22 14:50 01/01/22 15:05 01/01/22 15:20 Temperature 36.3 C L Pulse Rate 55 L 55 L 55 L Respiratory Rate 16 12 16 Blood Pressure 133/84 130/79 121/73 Pulse Oximetry 94 98 93 Oxygen Delivery Room Air Room Air Oxygen Flow Rate 01/01/22 16:40 01/01/22 21:15 01/01/22 23:45 Temperature 36.6 C 36.5 C Pulse Rate 85 71 Respiratory Rate 16 16 Blood Pressure 124/74 120/71 Pulse Oximetry 99 100 97 Oxygen Delivery Nasal Cannula Oxygen Flow Rate 2.0 01/01/22 23:45 01/02/22 04:20 01/02/22 09:27 Temperature 36.3 C L 36.1 C L Pulse Rate 77 72 Respiratory Rate 14 16 Blood Pressure 109/64 102/59 L Pulse Oximetry 97 94 Oxygen Delivery Room Air Oxygen Flow Rate 01/02/22 09:27 Temperature Pulse Rate 77 Respiratory Rate 14 Blood Pressure Pulse Oximetry 97 Oxygen Delivery Room Air Oxygen Flow Rate Intake/Output Intake/Output: Intake & Output 12/30/21 12/31/21 01/01/22 01/02/22 23:59 23:59 23:59 23:59 Intake Total 750 1250 Output Total 725 2800 Balance 25 -1550 Meds/Results Medications: Active Medications Generic Name Dose Route Start Last Admin Trade Name Freq PRN Reason Stop Dose Admin Hydrocodone Bitart/Acetaminophen 1 tab 01/01/22 15:10 01/02/22 09:16 Hydrocodone/Acetaminophen (*Crx) 5-325 Mg Tablet PO 1 tab Q3H PRN Administration Pain Rated 5 or Less Hydrocodone Bitart/Acetaminophen 1 tab 01/01/22 15:10 01/01/22 21:21 Hydrocodone/Acetaminophen (*Crx) 10-325 Mg Tablet PO 1 tab Q3H PRN Administration Pain Rated 6 or Greater Amitriptyline HCl 25 mg 01/01/22 21:00 01/01/22 21:20 Amitriptyline Hcl 25 Mg Tablet PO 25 mg HS JEANNIE Administration Docusate Sodium 100 mg 01/01/22 17:00 01/02/22 09:17 Docusate Sodium 100 Mg Capsule PO 100 mg BID JEANNIE Administration Enoxaparin Sodium 40 mg 01/01/22 21:00 01/01/22 21:20 Enoxaparin 40 Mg/0.4 Ml Syringe SUB-Q 40 mg DAILY JEANNIE Administration Ergocalciferol 50,000 unit 01/01/22 15:20 01/02/22 09:17 Ergocalciferol 50,000 Unit Capsule PO 50,000 unit Fr@0900 JEANNIE Administration Estradiol 0.05 mg 01/01/22 15:20 01/01/22 15:59 Estradiol 7 Day 0.05 Mg Patch TRANSDERM 0.05 mg Q7D@0900 JEANNIE Administration Hydrochlorothiazide 12.5 mg 01/02/22 09:00 01/02/22 09:17 Hydrochlorothiazide 12.5 Mg Capsule PO 02/01/22 08:59 12.5 mg DAILY JEANNIE Administration Dextrose/Sodium Chloride 1,000 mls @ 125 mls/hr 01/01/22 15:10 01/01/22 23:47 Dextrose 5% Sodium Chloride 0.45% IV CONT Not Given .Q8H JEANNIE Lisinopril 10 mg 01/02/22 09:00 01/02/22 09:17 Lisinopril 10 Mg Tablet PO 02/01/22 08:59 10 mg DAILY JEANNIE Administration Magnesium Gluconate 13.5 mg 01/02/22 09:00 01/02/22 09:17 Magnesium 13.5 Mg Tablet (250 Mg Mag Gluconate) PO 13.5 mg DAILY JEANNIE Administration Metoclopramide HCl 10 mg 01/01/22 15:10 Metoclopramide Hcl Inj 10 Mg/2 Ml Vial IV PUSH Q6H PRN Nausea Morphine Sulfate 4 mg 01/01/22 15:10 01/01/22 15:58 Morphine Sulfate (*Crx) 4
== END 2022-01-02 12:29 | disposition home or self-care (01) | DRG 743 ==
LOC: ANHOB2 15:13
PROVIDERS: Admitting Provider Obstetrics & Gynecology; PCP Family Medicine; Visit Provider Obstetrics & Gynecology
PROC: 8E0W8CZ Robotic Assisted Procedure of Trunk Region, Via Natural or Artificial Opening Endoscopic (ICD-10-PCS; principal; 2022-01-01 12:00)
DX: N88.2 Stricture and stenosis of cervix uteri (principal); N95.0 Postmenopausal bleeding; I10 Essential (primary) hypertension; F41.9 Anxiety disorder, unspecified; Z90.49 Acquired absence of other specified parts of digestive tract
CPT/HCPCS: 36415; 80048; 85025; 86850; 86900; 86901; 88307; 93005; A9270; J0690; J1100; J1170; J1650; J1885; J2250; J2270; J2405; J2704; J3010; J7030; J7120

== ENCOUNTER 2022-09-28 07:25 | Outpatient (CLI) | payer OTHER, SELFPAY ==
--- NOTE | ~2022-09-28 | MM_ITS ---
EXAMINATION: MM screening kenny BI w amilcar HISTORY: Screening TECHNIQUE: Craniocaudal and mediolateral oblique 3-D tomosynthesis images were obtained and synthetic 2-D images were generated. CAD analysis was submitted and interpreted. COMPARISON: Comparison to multiple prior studies sequentially, with oldest reviewed study dated 07/30. BREAST PARENCHYMAL COMPOSITION: There are scattered areas of fibroglandular density. FINDINGS: There is no evidence of suspicious mass, calcification, or architectural distortion to sugg est malignancy in either breast. There has been no suspicious interval change. IMPRESSION: 1. No mammographic evidence of malignancy. 2. Recommend routine screening mammography in one year. BI-RADS Category 1: Negative Reviewed, dictated and finalized at location A.
== END 2022-09-28 07:26 | disposition home or self-care (01) ==
PROVIDERS: PCP Family Medicine; Visit Provider Family Medicine
DX: Z12.31 Encounter for screening mammogram for malignant neoplasm of breast (principal)
CPT/HCPCS: 77063; 77067

== ENCOUNTER 2023-03-14 07:49 | Outpatient (CLI) | payer OTHER, SELFPAY ==
--- NOTE | ~2023-03-14 | MR_ITS ---
MRI of the brain Clinical History: Paresthesia Technique: Axial and sagittal T1-weighted images were acquired. These were followed by axial T2-weigh joshua, diffusion weighted, gradient, and FLAIR images. Coronal thin cut T1-weighted and T2-weighted howard ges, and axial thin cut T1-weighted images were acquired through the internal auditory canals. Follow ing intravenous administration of 20 cc MultiHance gadolinium, T1-weighted fat-sat imaging was perfor med through the brain in the axial and coronal planes. Thin cut coronal and axial T1 postcontrast howard ging was also performed through the internal auditory canals. Findings: No abnormal signal seen in the brain parenchyma. No acute infarct, intracranial hemorrhage, or mass lesion. Ventricles and subarachnoid spaces are unremarkable. Orbits are unremarkable. Paranasal sinuses and m astoid air cells are clear. Major intracranial flow voids appear intact. Sagittal midline structures demonstrate marked flattening the pituitary, consistent with empty sella syndrome. Sagittal midline structures are otherwise unremarkable. No abnormal mass lesion identified at the internal auditory canals or CP angle regions. No abnormal postcontrast enhancement identified. IMPRESSION: Findings suggestive of empty sella syndrome, otherwise unremarkable exam. Reviewed, dictated and finalized at location M.
== END 2023-03-14 07:50 ==
PROVIDERS: PCP Family Medicine; Visit Provider Family Medicine
DX: R20.0 Anesthesia of skin (principal)
CPT/HCPCS: 70553; A9577

== ENCOUNTER 2023-12-12 08:32 | Outpatient (CLI) | payer BC, SELFPAY ==
--- NOTE | ~2023-12-12 | MM_ITS ---
EXAMINATION: MM screening kenny BI w amilcar HISTORY: Screening TECHNIQUE: Craniocaudal and mediolateral oblique 3-D tomosynthesis images were obtained and synthetic 2-D images were generated. CAD analysis was submitted and interpreted. COMPARISON: Comparison to multiple prior studies sequentially, with oldest reviewed study dated 12/2014. BREAST PARENCHYMAL COMPOSITION: There are scattered areas of fibroglandular density. FINDINGS: There is no evidence of suspicious mass, calcification, or architectural distortion to sugg est malignancy in either breast. There has been no suspicious interval change. IMPRESSION: 1. No mammographic evidence of malignancy. 2. Recommend routine screening mammography in one year. BI-RADS Category 1: Negative Reviewed, dictated and finalized at location B.
== END 2023-12-12 08:33 | disposition home or self-care (01) ==
LOC: ANHIMG 08:35
PROVIDERS: PCP Family Medicine; Visit Provider Family Medicine
DX: Z12.31 Encounter for screening mammogram for malignant neoplasm of breast (principal)
CPT/HCPCS: 77063; 77067

== ENCOUNTER 2024-02-16 07:21 | Outpatient (CLI) | payer BC, SELFPAY ==
--- NOTE | 2024-03-13 09:23 | WPDHOMESLEEP ---
Sleep Study - Home Unattended Date of Study: 02/16/24 Ordering Provider: Daphney Herrmann MD Interpreting Provider: Melissa Berg DO Home Sleep Study Type: Watch PAT Height: 1.75 m Weight: 113.398 kg Body Mass Index: 36.9 Neck Circumference (inches): 16 [place]: 13 Reason for Sleep Study Excessive daytime sleepiness Sleep History The patient is a 53-year-old female with hypertension, hyperlipidemia, asthma anxiety and seasonal allergies that had a sleep study ordered by her primary care physician for evaluation of sleep apnea. The patient admits to excessive daytime sleepiness. She denies snoring, stopping breathing in her sleep, choking or gasping as well as trouble breathing on her back. She does admit to morning headaches. She does admit to having a dry mouth or throat in the morning. She denies nocturnal heartburn and nocturia. She does have difficulty falling asleep. She denies having trouble maintaining sleep. she does feel tired, fatigued and sleepy during the day. She does feel unrefreshed in the morning when she wakes up. She does have the urge to fall asleep during the day. She denies feeling drowsy while driving. She does clench or grind her teeth. She denies kicking or jerking her legs excessively. She denies having a restless feeling in her legs. She goes to bed at 11:00 p.m. on both weekdays and weekends. It takes her 30 minutes to fall asleep. She typically gets 6 hours of sleep on weekdays and 7 hours on the weekends. She does not take any point naps. She denies smoking cigarettes. She consumes 1 glass of an alcoholic beverage 1-2 nights per week. She consumes 1-2 cups of caffeinated beverage per day. She exercises 1-2 times per week. She denies having a rotating shift schedule. [facility] Past Medical History Medical History Allergies Anemia Anxiety Asthma Cervical stenosis (uterine cervix) Deltoid tendinitis Fatigue Headache History of human papillom[place] 67510 hpv negative/ normal pap History of mammogram (~11/18/16) History of Papanicolaou smear of cervix (~08/28/12) Hypertension Right rotator cuff tendinitis Screening for breast cancer Surgical History Surgical History H/O dilation and curettage H/O tubal ligation H/O: hysterectomy TV hbso History of 3 sections History of appendectomy (~11/20/18) History of colonoscopy with polypectomy History of hysteroscopy History of laparoscopy History of tonsillectomy S/P appendectomy Social History Social History Smoking status: Never smoker Alcohol intake: current Alcohol use details: roberto Substance use: never Substance use type: does not use Do You Feel Safe in your Home?: Yes Lack of Transportation: No Lack of Food: Never True Current Housing: I Have Housing Concerned About Future Housing: No Difficulty Paying Gas/Electric Bills: No Difficulty Paying for Meds: No Currently Unemployed: No Education: Bachelor's Degree Difficulty w/ Childcare or Family Care: No Living arrangements: with family Spiritual care concerns: No Medications Home Medications Medication Instructions Recorded Confirmed Type cholecalciferol (vitamin D3) 1,250 1,250 mcg PO WEEKLY #14 caps 01/08/21 01/04/24 Rx mcg (50,000 unit) capsule lisinopril 10 1 tablet PO DAILY #90 tabs 06/22/23 01/04/24 Rx mg-hydrochlorothiazide 12.5 mg tablet sertraline 50 mg tablet 50 mg PO DAILY #90 tabs 07/29/23 01/04/24 Rx albuterol sulfate 90 mcg/actuation 1 inh inhalation Q4H PRN shortness 08/31/23 01/04/24 Rx aerosol inhaler of breath or wheezing #8.5 grams budesonide 160 mcg-glycopyr 9 2 inh inhalation BID #10.7 grams 09/07/23 01/04/24 Rx mcg-formot 4.8 mcg/actuation HFA inhaler ([employer]) Zepbound 5 mg/0.
[2024-03-13 09:25] VITALS: BMI 36.9
== END 2024-02-17 10:09 | disposition home or self-care (01) ==
LOC: ANHCSM 07:22
PROVIDERS: PCP Family Medicine; Visit Provider Family Medicine
DX: G47.10 Hypersomnia, unspecified (principal); G47.33 Obstructive sleep apnea (adult) (pediatric)
CPT/HCPCS: 95800

== ENCOUNTER 2024-07-18 10:10 | Outpatient (CLI) | payer BC, SELFPAY ==
--- NOTE | 2024-08-06 18:36 | P.SLEEP_ITS ---
Sleep Study Date of Study: 07/18/24 Ordering Provider: Melissa Berg DO Interpreting Physician: Melissa Berg DO Sleep Study Type: CPAP Titration Height: 1.75 m Weight: 106.594 kg Body Mass Index: 34.7 Neck Circumference (inches): 16 [place]: 13 Reason for Sleep Study WatchPAT home sleep test on 02/16/2024 that showed an overall AHI of 17 with desaturation down to 75%. Central apnea index of 5.1. Sleep History The patient is a 54-year-old female with hypertension, hyperlipidemia, asthma anxiety and seasonal allergies that had a sleep study ordered by her primary care physician for evaluation of sleep apnea. The patient admits to excessive daytime sleepiness. She denies snoring, stopping breathing in her sleep, choking or gasping as well as trouble breathing on her back. She does admit to morning headaches. She does admit to having a dry mouth or throat in the morning. She denies nocturnal heartburn and nocturia. She does have difficulty falling asleep. She denies having trouble maintaining sleep. she does feel tired, fatigued and sleepy during the day. She does feel unrefreshed in the morning when she wakes up. She does have the urge to fall asleep during the day. She denies feeling drowsy while driving. She does clench or grind her teeth. She denies kicking or jerking her legs excessively. She denies having a restless feeling in her legs. She goes to bed at 11:00 p.m. on both weekdays and weekends. It takes her 30 minutes to fall asleep. She typically gets 6 hours of sleep on weekdays and 7 hours on the weekends. She does not take any point naps. She denies smoking cigarettes. She consumes 1 glass of an alcoholic beverage 1- 2 nights per week. She consumes 1-2 cups of caffeinated beverage per day. She exercises 1-2 times per week. She denies having a rotating shift schedule. [facility] Past Medical History Medical History Cervical stenosis (uterine cervix) History of [place] papill[place] 66811 hpv negative/ normal pap Hypertension Headache Anxiety Anemia Asthma Allergies Screening for breast cancer Fatigue Deltoid tendinitis Right rotator cuff tendinitis History of Papanicolaou smear of cervix (~08/28/12) History of mammogram (~11/18/16) Surgical History Surgical History H/O: hysterectomy TV hbso H/O dilation and curettage History of hysteroscopy History of colonoscopy with polypectomy H/O tubal ligation S/P appendectomy History of 3 sections History of appendectomy (~11/20/18) History of tonsillectomy History of laparoscopy Social History Social History Smoking status: Never smoker Alcohol intake: current Alcohol use details: roberto Substance use: never Substance use type: does not use Do You Feel Safe in your Home?: Yes Lack of Transportation: No Lack of Food: Never True Current Housing: I Have Housing Concerned About Future Housing: No Difficulty Paying Gas/Electric Bills: No Difficulty Paying for Meds: No Currently Unemployed: No Education: Bachelor's Degree Difficulty w/ Childcare or Family Care: No Living arrangements: with family Spiritual care concerns: No Medications Home Medications ?Medication ?Instructions ?Recorded ?Confirmed ?Type cholecalciferol (vitamin D3) 1,250 1,250 mcg PO WEEKLY #14 caps 01/08/21 06/06/24 Rx mcg (50,000 unit) capsule albuterol sulfate 90 mcg/actuation 1 inh inhalation Q4H PRN shortness 08/31/23 06/06/24 Rx aerosol inhaler of breath or wheezing #8.5 grams budesonide 160 mcg-glycopyr 9 2 inh inhalation BID #10.7 grams 09/07/23 06/06/24 Rx mcg-formot 4.8 mcg/actuation HFA inhaler (Breztri [employer]) Zepbound 10 mg/0.5 mL subcutaneous 10 mg (0.5 mL) subcut WEEKLY #6 mL 05/24/24 06/06/24 Rx pen injector (tirzepatide (weight loss)) sertraline 50 mg tablet 50 mg PO DAILY #90 tabs 05/24/24 06/06/24 Rx eszopiclone 3 mg tablet (Lunesta) 3 mg PO QHS #1 tablet 12/04/24 12/04/24 Rx famotidine 20 mg tablet 20 mg PO DAILY 06/06/24 06/06/24 History (Zantac-360 (famotidine)) magnesium aspart,citrate,oxide mg PO 06/06/24 06/06/24 History hydrochlorothiazide 12.5 mg tablet 12.5 mg PO QAM #90 tabs 08/01/24 Rx Sleep Procedure A full night CPAP Titration using the [employer] multi-channel system recorded the standard physiologic parameters including EEG, EOG, submentalis EMG, anterior tibialis EMG, EKG, body position, nasal and oral airflow using nasal pressure sensor and thermistor.? Respiratory parameters of chest and abdominal movements were recorded with Respiratory Inductance Plethysmography belts. Oxygen saturation was recorded by pulse oximetry. Video monitoring was also performed. Sleep stages, periodic limb movements, and EEG arousals were scored in 30 second epochs according to the criteria of the AASM Scoring Manual. The Apnea-Hypopnea Index was calculated using CMS guidelines for definition of hypopnea with 4% O2 desaturations while scoring respiratory events. Sleep Architecture The total recording time was 458.1 minutes.? The total sleep time was 400.5 minutes. Sleep latency was 11.7 minutes. REM latency was 263.5 minutes. Sleep efficiency was 87.4%. The patient had 27 awakenings for an awakening index of 4.0. Wake after Sleep Onset time was 46.0 minutes. The patient spent 45.5 minutes, 11.4% of total sleep time in Stage N1. The patient spent 281.5 minutes, 70.3% in Stage N2. The patient spent 11.0 minutes, 2.7% in Stage N3. The patient spent 62.5 minutes, 15.6% in Stage REM. Respiratory Analysis The patient had 34 hypopneas, 1 obstructive apnea and 1 central apnea for an overall Apnea Hypopnea Index of 5.4 events per hour. The REM Apnea Hypopnea Index was 2.9. The NREM Apnea Hypopnea Index was 5.9. The patient had a Central Apnea Hypopnea Index of 0.1. There was no evidence of Monroe-Ha Respirations. The patient was started on CPAP 5 cm H2O and titrated to CPAP 14 cm H2O due to hypopneas. The patient was able to fall asleep starting on CPAP 5 cm H2O. The patient was able to achieve REM sleep starting on CPAP 12 cm H2O. The patient's sleep apnea resolved with both NREM and REM sleep on the final two pressures. On CPAP 12 cm H2O, the patient spent 104 minutes in NREM and 55 minutes in REM with 6 hypopneas, resulting in an AHI of 2.3. On CPAP 14 cm H2O, the patient spent 18.5 minutes in NREM and 7.5 minutes in REM with 1 hypopnea, resulting in an AHI of 2.3. The patient had a sleep efficiency of 93.3% on 12 cm H2O and 83.9% on 14 cm H2O. Arousals There were 128 total arousals for an arousal index of 19.2. There were 40 spontaneous arousals for an index of 6.0. ?There were 25 arousals due to res piratory events for an index of 3.7. There were 58 arousals due to periodic limb movements for an index of 8.7.? There were 8 arousals due to isolated limb movements for an index of 1.2. Periodic Limb Movements The patient had 14 isolated limb movements with an index of 2.1. The patient had 465 periodic limb movements with index of 69.7, which is elevated (normal < 15). Patient had a total of 479 limb movements with a total limb movement index of 71.8. Oximetry Data The patient had an average oxygen saturation of 92.8% in sleep with a minimum oxygen saturation of 85.0% and a maximum oxygen saturation of 96.0%. The patient had 35 oxygen desaturations that were 4% or greater resulting in an Oxygen Desaturation Index of 5.2.? The patient spent 4.9 minutes, 1.1% of total sleep time with an oxygen saturation below 88%. Snoring Profile Snoring was not present during this study. Cardiac Profile The EKG showed normal sinus rhythm with occasional PVCs. The patient had an average pulse rate of 70.5 bpm with a minimum pulse rate of 57.0 bpm and a maximum pulse rate of 92.0 bpm. ? EEG Profile No signs of seizure activity seen. Assessment and Plan Assessment and Plan (1) RUBY (obstructive sleep apnea): Code(s): G47.33 - Obstructive sleep apnea (adult) (pediatric) Status: Acute Assessment and Plan: The patient was started on CPAP 5 cm H2O and titrated to CPAP 14 cm H2O due to hypopneas. The patient's sleep apnea achieved a residual AHI less than 5 with both NREM and REM sleep in the supine position on the final pressure. I recommend that the patient be prescribed Resmed CPAP 14 cm H2O, size medium Resmed Airtouch F20 full face mask, CPAP filters/tubing and heated humidity. This should be used with all episodes of sleep.? Compliance should be reviewed within 31-90 days of starting therapy for usage greater than 4 hours per night greater than 70% of the nights. The patient should be asked about symptoms such as?excessive daytime sleepiness, quality of sleep, decreased nocturia, increased?mental functioning such as memory, mood, and concentration. While the patient did have an elevated number of periodic limb movements during the study, the frequency decreased drastically when she was titrated to the optimal pressure setting. I recommend asking the patient about leg movements during her first compliance visit. Data The data obtained during this sleep study is adequate for interpretation. Certification This sleep study has been reviewed by a board certified sleep medicine physician.
[2024-08-06 18:37] VITALS: BMI 34.7
== END 2024-07-19 07:06 | disposition home or self-care (01) ==
LOC: ANHCSM 10:41
PROVIDERS: PCP Family Medicine; Visit Provider Family Medicine
DX: G47.33 Obstructive sleep apnea (adult) (pediatric) (principal)
CPT/HCPCS: 95811

== ENCOUNTER 2024-10-01 00:31 | Day surgery (SDC) | payer BC, SELFPAY ==
[2024-09-25 10:22] VITALS: BMI 34.2
[2024-10-01 10:01] VITALS: BP 115/76; PULSE 73; RESP 20; TEMP 36.1; O2SAT 97; BMI 33.7
[2024-10-01] MEDS: LACTATED RINGERS 1,000 ML 150 ML IV CONT (10:10)
--- NOTE | 2024-10-01 10:20 | P.PNAN_ITS ---
Anes - Initial Pre Proc Eval Procedure: Operation Date: 10/01/24 11:00 Proposed Procedures p Screening Colonoscopy - Heriberto Oro MD Date/Time: 10/01/24 10:20 Surgeon: Heriberto Oro MD Pre Op Diagnosis: screening colon Patient Data Age: 54 Gender: F Height: 1.75 m Weight: 103.7 kg Last Vital Signs Temp 96.9 F L 10/01/24 10:01 Pulse 73 10/01/24 10:01 Resp 20 10/01/24 10:01 BP 115/76 10/01/24 10:01 Pulse Ox 97 10/01/24 10:01 O2 Del Method Room Air 10/01/24 10:01 Allergies Allergy/AdvReac Type Severity Reaction Status Date / Time promethazine Allergy Severe hallucinati Verified 10/01/24 09:58 ons Penicillins Allergy Unknown Rash Verified 10/01/24 09:58 Home Medications ?Medication ?Instructions ?Recorded ?Confirmed ?Type cholecalciferol (vitamin D3) 1,250 1,250 mcg PO WEEKLY #14 caps 01/08/21 10/01/24 Rx mcg (50,000 unit) capsule albuterol sulfate 90 mcg/actuation 1 inh inhalation Q4H PRN shortness 08/31/23 09/25/24 Rx aerosol inhaler of breath or wheezing #8.5 grams budesonide 160 mcg-glycopyr 9 2 inh inhalation BID #10.7 grams 09/07/23 10/01/24 Rx mcg-formot 4.8 mcg/actuation HFA inhaler (Breztri Aerosphere) sertraline 50 mg tablet 50 mg PO DAILY #90 tabs 05/24/24 10/01/24 Rx eszopiclone 3 mg tablet (Lunesta) 3 mg PO QHS #1 tablet 06/06/24 06/06/24 Rx famotidine 20 mg tablet 20 mg PO DAILY 06/06/24 10/01/24 History (Zantac-360 (famotidine)) magnesium aspart,citrate,oxide 400 mg PO DAILY 06/06/24 10/01/24 History hydrochlorothiazide 12.5 mg tablet 12.5 mg PO QAM #90 tabs 08/01/24 10/01/24 Rx CPAP Equipment #1 ea 08/08/24 Rx tirzepatide (weight loss) 12.5 12.5 mg (0.5 mL) subcut WEEKLY #2 09/10/24 10/01/24 Rx mg/0.5 mL subcutaneous pen injector mL ondansetron 4 mg disintegrating 4 mg PO Q6H PRN nausea and 09/25/24 Rx tablet vomiting #4 tabs Patient hx anesthesia problems: none Family hx anesthesia problems: none Results Review: All pre-operative results and documents have been reviewed as part of the pre- operative evaluation. [facility] Past Medical History Medical History Cervical stenosis (uterine cervix) History of human papillom[place] 49044 hpv negative/ normal pap Hypertension Headache Anxiety Anemia Asthma Allergies Screening for breast cancer Fatigue Deltoid tendinitis Right rotator cuff tendinitis History of Papanicolaou smear of cervix (~08/28/12) History of mammogram (~11/18/16) Surgical History Surgical History H/O: hysterectomy TV hbso H/O dilation and curettage History of hysteroscopy History of colonoscopy with polypectomy H/O tubal ligation S/P appendectomy History of 3 sections History of appendectomy (~11/20/18) History of tonsillectomy History of laparoscopy Social History Social History Smoking status: Never smoker Alcohol intake: current Drinks per week: 2 Alcohol use details: roberto Substance use: never Substance use type: does not use Do You Feel Safe in your Home?: Yes Lack of Transportation: No Lack of Food: Never True Current Housing: I Have Housing Concerned About Future Housing: No Difficulty Paying Gas/Electric Bills: No Difficulty Paying for Meds: No Currently Unemployed: No Education: Bachelor's Degree Difficulty w/ Childcare or Family Care: No Living arrangements: with family Spiritual care concerns: No Anes - Eval Final PreProcedure Day of Procedure 10/01/24 10:20 Patient weight: obese Lungs: normal air movement Airway: Mallampati scale class III Neurological: alert and oriented Last oral intake: >/= 8 hours ASA classification: III Emergent: no Anesthetic plan: proceed Anesthesia type and monitoring: general GIVS and standard monitoring Results Review: All pre-operative results and documents have been reviewed as part of the pre- operative evaluation. RUBY on CPAP, HTN, preDM, on GLP1 but not taken for 2 weeks. Informed Consent: The patient's anesthetic plan and its attendant risks and benefits were discussed with the patient/family/POA. Questions were solicited and answers provided to the satisfaction of the patient/family/POA.
--- NOTE | 2024-10-01 10:23 | PM.HPGS ---
History of Present Illness History of Present Illness Consent: Risks, benefits, and alternatives have been discussed and questions answered. Patient agrees to proceed with procedure. Chief complaint: colon polyp Narrative: Kandy Michelle is a 54 year old female with colon polyp in 2021 Review of Systems Review of Systems: All systems reviewed & are unremarkable except as noted in HPI and below PMFSH Past Medical History Medical History (Updated 10/01/24 @ 10:25 by Heriberto Oro MD) Adenomatous colon polyp Cervical stenosis (uterine cervix) History of human papillomavirus infection pap [id number] hpv negative/ normal pap Hypertension Headache Anxiety Anemia Asthma Allergies Screening for breast cancer Fatigue Deltoid tendinitis Right rotator cuff tendinitis History of Papanicolaou smear of cervix (~08/28/12) History of mammogram (~11/18/16) Surgical History Surgical History H/O: hysterectomy TV hbso H/O dilation and curettage History of hysteroscopy History of colonoscopy with polypectomy H/O tubal ligation S/P appendectomy History of 3 sections History of appendectomy (~11/20/18) History of tonsillectomy History of laparoscopy Social History Social History Smoking status: Never smoker Alcohol intake: current Drinks per week: 2 Alcohol use details: roberto Substance use: never Substance use type: does not use Do You Feel Safe in your Home?: Yes Lack of Transportation: No Lack of Food: Never True Current Housing: I Have Housing Concerned About Future Housing: No Difficulty Paying Gas/Electric Bills: No Difficulty Paying for Meds: No Currently Unemployed: No Education: Bachelor's Degree Difficulty w/ Childcare or Family Care: No Living arrangements: with family Spiritual care concerns: No Meds Home Medications and Allergies Home Medications ?Medication ?Instructions ?Recorded ?Confirmed ?Type cholecalciferol (vitamin D3) 1,250 1,250 mcg PO WEEKLY #14 caps 01/08/21 10/01/24 Rx mcg (50,000 unit) capsule albuterol sulfate 90 mcg/actuation 1 inh inhalation Q4H PRN shortness 08/31/23 09/25/24 Rx aerosol inhaler of breath or wheezing #8.5 grams budesonide 160 mcg-glycopyr 9 2 inh inhalation BID #10.7 grams 09/07/23 10/01/24 Rx mcg-formot 4.8 mcg/actuation HFA inhaler (Breztri Aerosphere) sertraline 50 mg tablet 50 mg PO DAILY #90 tabs 05/24/24 10/01/24 Rx eszopiclone 3 mg tablet (Lunesta) 3 mg PO QHS #1 tablet 06/06/24 06/06/24 Rx famotidine 20 mg tablet 20 mg PO DAILY 06/06/24 10/01/24 History (Zantac-360 (famotidine)) magnesium aspart,citrate,oxide 400 mg PO DAILY 06/06/24 10/01/24 History hydrochlorothiazide 12.5 mg tablet 12.5 mg PO QAM #90 tabs 08/01/24 10/01/24 Rx CPAP Equipment #1 ea 08/08/24 Rx tirzepatide (weight loss) 12.5 12.5 mg (0.5 mL) subcut WEEKLY #2 09/10/24 10/01/24 Rx mg/0.5 mL subcutaneous pen injector mL ondansetron 4 mg disintegrating 4 mg PO Q6H PRN nausea and 09/25/24 Rx tablet vomiting #4 tabs Allergies Allergy/AdvReac Type Severity Reaction Status Date / Time promethazine Allergy Severe hallucinati Verified 10/01/24 09:58 ons Penicillins Allergy Unknown Rash Verified 10/01/24 09:58 Vital Signs Vital Signs - 24 hr 10/01/24 10:01 Temperature 96.9 F L Pulse Rate 73 Respiratory Rate 20 Blood Pressure 115/76 Pulse Oximetry 97 Oxygen Delivery Room Air Exam Const: General: comfortable and no acute distress HENMT: Face/Nose/Sinus: Normal nares present Eyes: General: appearance normal, both eyes and all related structures Neck: Neck: no JVD Resp: Auscultation: clear to auscultation bilaterally Cardio: Rate: regular rate Rhythm: regular rhythm GI: Inspection: non-distended GI Palp: Yes Soft to palpation Skin: General skin exam: normal color Neuro: General: gait normal Speech: normal speech Extrem: General: normal to inspection Psych: Mental Status: mental status grossly normal Assessment and Plan Assessment and plan (1) Adenomatous colon polyp: Code(s): D12.6 - Benign neoplasm of colon, unspecified Status: Acute Assessment and Plan: colonoscopy
[2024-10-01 10:45] VITALS: BP 87/57; PULSE 67; RESP 16; O2SAT 99
[2024-10-01 10:55] VITALS: BP 97/60; PULSE 61; RESP 18; O2SAT 100
[2024-10-01 11:05] VITALS: BP 111/70; PULSE 61; RESP 19; O2SAT 100
== END 2024-10-01 11:17 | disposition home or self-care (01) ==
PROVIDERS: PCP Family Medicine; Referring Provider Family Medicine; Visit Provider Internal Medicine Gastroenterology
PROC: 0DJD8ZZ Inspection of Lower Intestinal Tract, Via Natural or Artificial Opening Endoscopic (ICD-10-PCS; CPT 45378; principal; 2024-10-01 11:00)
DX: Z12.11 Encounter for screening for malignant neoplasm of colon (principal); K64.4 Residual hemorrhoidal skin tags; K57.30 Diverticulosis of large intestine without perforation or abscess without bleeding; I10 Essential (primary) hypertension; D64.9 Anemia, unspecified; J45.909 Unspecified asthma, uncomplicated; M48.02 Spinal stenosis, cervical region; F41.9 Anxiety disorder, unspecified; G47.33 Obstructive sleep apnea (adult) (pediatric); E66.9 Obesity, unspecified; Z68.33 Body mass index [BMI] 33.0-33.9, adult; Z79.51 Long term (current) use of inhaled steroids; Z79.85 Long-term (current) use of injectable non-insulin antidiabetic drugs; Z99.89 Dependence on other enabling machines and devices; Z98.890 Other specified postprocedural states; Z98.51 Tubal ligation status; Z86.0100 Personal history of colon polyps, unspecified
CPT/HCPCS: 45378; J2704; J7120

== ENCOUNTER 2025-01-17 15:31 | Outpatient (CLI) | payer BC, SELFPAY ==
--- NOTE | ~2025-01-17 | MM_ITS ---
EXAMINATION: MM screening k[facility] BI w amilcar HISTORY: Screening TECHNIQUE: Craniocaudal and mediolateral oblique 3-D tomosynthesis images were obtained and synthetic 2-D images were generated. CAD analysis was submitted and interpreted. COMPARISON: Comparison to multiple prior studies sequentially, with oldest reviewed study dated 09/18. BREAST PARENCHYMAL COMPOSITION: Not dense: There are scattered areas of fibroglandular density. FINDINGS: There is no evidence of suspicious mass, calcification, or architectural distortion to sugg est malignancy in either breast. There has been no suspicious interval change. IMPRESSION: 1. No mammographic evidence of malignancy. 2. Recommend routine screening mammography in one year. BI-RADS Category 1: Negative Reviewed, dictated and finalized at location B.
== END 2025-01-17 15:32 | disposition home or self-care (01) ==
PROVIDERS: PCP Family Medicine; Visit Provider Family Medicine
DX: Z12.31 Encounter for screening mammogram for malignant neoplasm of breast (principal)
CPT/HCPCS: 77063; 77067